=== PATIENT | female | born 1975 | race Caucasian/White ===

== ENCOUNTER 2020-08-21 07:38 | Outpatient (CLI) | payer OTHER ==
[2020-08-21] MEDS ORDERED: ESSENTIAL OILS (08:26)
[2020-08-21] MEDS ORDERED: ALBU8.5H8 INH (08:26)
[2020-08-21] MEDS ORDERED: CURCUMIN PO (08:26)
[2020-08-21] MEDS ORDERED: TURMERIC PO (08:26)
[2020-08-21] MEDS ORDERED: COD LIVER OIL PO (08:26)
[2020-08-21] MEDS ORDERED: MULT-658 PO (08:26)
[2020-08-21] MEDS ORDERED: MAGNESIUM GLUCONATE PO (08:26)
== END 2020-08-21 23:59 | disposition home or self-care (01) ==
LOC: STAR 07:38
PROVIDERS: ATTEND Specialist
DX: Z20.822 Contact with and (suspected) exposure to COVID-19 (principal); R10.2 Pelvic and perineal pain; N94.12 Deep dyspareunia; N92.0 Excessive and frequent menstruation with regular cycle; D25.0 Submucous leiomyoma of uterus
CPT/HCPCS: U0003

== ENCOUNTER 2020-08-25 05:41 | Day surgery (SDC) | payer OTHER ==
[~2020-08-25] VITALS: Ht 157.5 cm; Wt 71.5 kg
[~2020-08-25 05:41] MED LIST: ALBU8.5H8 INH; COD LIVER OIL PO; CURCUMIN PO; ESSENTIAL OILS; MAGNESIUM GLUCONATE PO; MULT-658 PO; TURMERIC PO
[2020-08-25 06:21] VITALS: BP 130/65
[2020-08-25] MEDS ORDERED: CHLORHEXIDINE 15 ML UDC ONE (06:25)
[2020-08-25] MEDS ORDERED: CHLORHEXIDINE 15 ML UDC PO ONE (06:30)
[2020-08-25] MEDS: LACTATED RINGERS 1,000 ML IV SCH ×2 (06:36→16:12)
[2020-08-25 06:37] LABS: HCG UR SG 1.017 (1.003-1.030)
[2020-08-25] MEDS ORDERED: ESTROGENS CONJUGATED VAG CRM 0.625MG/1G, 30GM ONE (06:54)
[2020-08-25] MEDS ORDERED: INDIGO CARMINE 0.8%, 5ML ONE (06:54)
[2020-08-25] MEDS ORDERED: BUPIVACAINE/PF 0.25% ONE (06:54)
[2020-08-25] MEDS ORDERED: EPINEPHRINE 1 MG/ML, 1ML ONE (06:55)
[2020-08-25] MEDS ORDERED: FENTANYL PF 250 MCG/5ML ONE (07:11)
[2020-08-25] MEDS ORDERED: MIDAZOLAM 1 MG/ML, 2ML ONE (07:11)
[2020-08-25] MEDS ORDERED: LIDOCAINE-MPF 2% ,5ML ONE (07:14)
[2020-08-25] MEDS ORDERED: ALBUTEROL SULFATE 2.5 MG/3 ML NPPB PRN (08:30)
[2020-08-25] MEDS ORDERED: LORazepam 2 MG/ML, 1ML IVPush PRN (08:30)
[2020-08-25] MEDS ORDERED: PROMETHAZINE 25 MG/ML, 1ML IVPush PRN (08:30)
[2020-08-25] MEDS ORDERED: MEPERIDINE/PF 25MG/0.5ML IVPush PRN (08:30)
[2020-08-25] MEDS ORDERED: hydrALAzine 20 MG/ML, 1ML IV PRN (08:30)
[2020-08-25] MEDS ORDERED: LABETALOL 5MG/ML, 20ML IV PRN (08:30)
[2020-08-25] MEDS ORDERED: ACETAMINOPHEN 325 MG TABLET PO PRN (08:30)
[2020-08-25] MEDS ORDERED: OXYcodone 5 MG/5 ML ORAL.SOL UDC PO PRN (08:30)
[2020-08-25] MEDS ORDERED: CEFAZOLIN 1,000 MG ONE (09:16)
[2020-08-25] MEDS ORDERED: ONDANSETRON 2MG/ML, 2ML ONE ×2 (09:16→16:04)
[2020-08-25] MEDS ORDERED: PROPOFOL 10 MG/ML, 20ML ONE (09:16)
[2020-08-25] MEDS ORDERED: GLYCOPYRROLATE 0.2MG/1ML, 5ML ONE (09:16)
[2020-08-25] MEDS ORDERED: ROCURONIUM 10MG/ML,5ML ONE (09:16)
[2020-08-25] MEDS ORDERED: DEXAMETHASONE 4 MG/ML, 1ML ONE (09:16)
[2020-08-25] MEDS ORDERED: NEOSTIGMINE 1 MG/ML, 10ML ONE (09:16)
[2020-08-25] MEDS ORDERED: HYDROmorphone 1 MG/ML, 1ML INJ ONE ×2 (09:26→10:15)
[2020-08-25] MEDS ORDERED: OXYcodone 5 MG/5 ML ORAL.SOL UDC ONE (09:54)
[2020-08-25] MEDS ORDERED: FENTANYL PF 100 MCG/2ML ONE (09:54)
[2020-08-25] MEDS: FENTANYL PF 100 MCG/2ML IV PRN ×2 (09:59→10:04)
[2020-08-25] MEDS: HYDROmorphone 1 MG/ML, 1ML INJ IVPush PRN ×2 (10:16→10:21)
[2020-08-25] MEDS ORDERED: ACETAMINOPHEN 650 MG/20.3 ML UDC ONE (10:20)
[2020-08-25] MEDS ORDERED: ONDANSETRON 2MG/ML, 2ML IVPush PRN (16:00)
== END 2020-08-25 17:00 | disposition home or self-care (01) ==
LOC: OUT 05:41
PROVIDERS: ATTEND Specialist
DX: N63.12 Unspecified lump in the right breast, upper inner quadrant (principal); N94.6 Dysmenorrhea, unspecified; N92.1 Excessive and frequent menstruation with irregular cycle; N94.12 Deep dyspareunia; D25.1 Intramural leiomyoma of uterus; N70.11 Chronic salpingitis; N73.6 Female pelvic peritoneal adhesions (postinfective); F41.9 Anxiety disorder, unspecified; J45.909 Unspecified asthma, uncomplicated; Z79.890 Hormone replacement therapy; Z79.899 Other long term (current) drug therapy; Z87.891 Personal history of nicotine dependence; Z88.5 Allergy status to narcotic agent; Z91.040 Latex allergy status; Z80.3 Family history of malignant neoplasm of breast
CPT/HCPCS: 19120; 58571; 81025; 88305; 88307; J0690; J1100; J1170; J2250; J2405; J2704; J2710; J3010; J7120; S2900; J0171